=== PATIENT | male | born 1980 | race Hispanic/Latino ===

== ENCOUNTER 2021-11-14 23:05 | Emergency (ER) | payer OTHER ==
[~2021-11-14] VITALS: Ht 172.7 cm; Wt 86.2 kg
[2021-11-14 23:08] VITALS: BP 136/93
[2021-11-14 23:39] LABS: BASOPHILS % (AUTO) 0.4 % (0.0-5.0); EOSINOPHILS % (AUTO) 2.1 % (0.0-8.0); HEMATOCRIT 43.3 % (42-54); LYMPHOCYTES % (AUTO) 31.2 % (21.0-51.0); MEAN CORPUSCULAR HEMOGLOBIN 29.1 pg (27.0-33.0); MONOCYTES % (AUTO) 7.8 % (3.0-13.0); NEUTROPHILS % (AUTO) 58.2 % (40.0-77.0); PLATELET COUNT (AUTO) 367 K/uL (130-400); RED BLOOD CELL COUNT(AUTO) 4.92 MIL/uL (4.50-6.20); RED CELL DISTRIBUTION WIDTH 14.7 % (11.0-15.5)
[2021-11-14 23:59] LABS: ALBUMIN 3.8 g/dL (3.5-5.0); BILIRUBIN,TOTAL 0.5 mg/dL (0.2-1.0)
[2021-11-15 01:01] LABS: TOTAL PROTEIN, SERUM 7.7 g/dL (6.0-8.3)
== END 2021-11-15 03:36 | disposition left against medical advice (07) ==
LOC: EDH 23:05
DX: R10.9 Unspecified abdominal pain (principal); Z53.21 Procedure and treatment not carried out due to patient leaving prior to being seen by health care provider
CPT/HCPCS: 36415; 80053; 83690; 85025

== ENCOUNTER 2025-01-27 21:41 | Emergency (ER) | payer BC, OTHER ==
[~2025-01-27] VITALS: Ht 152.4 cm; Wt 83.9 kg
--- NOTE | 2025-01-27 21:50 | ERN ---
ED Note History of Present Illness Stated Complaint: LACERATION Chief Complaint: Laceration/Avulsion Time Seen by MD: 21:42 Time Seen by Midlevel: 21:45 Dictation: Mr. Lau is a 44-year-old male with no reported chronic health issues who presented to the emergency department this evening for evaluation of hand injury. Patient states he was fishing for [employer] and when he went to discharge a live fish he struck his left index finger with his machete. Allergies: Coded Allergies: No Known Allergies (Unverified Allergy, Unknown, 11/14/21) Past Medical History Past Medical History: No Pertinent History Surgical History: Other Surgical History Other: LEFT HAND RN Note Reviewed/Agreed w/PFSH: Yes Review of System Dictation REVIEW OF SYSTEMS: CONSTITUTIONAL: Patient denies fevers, chills, sweats and weight changes. EYES: Patient denies any visual symptoms. EARS, NOSE, AND THROAT: No difficulties with hearing. No symptoms of rhinitis or sore throat. CARDIOVASCULAR: Patient denies chest pains, palpitations, orthopnea and paroxysmal nocturnal dyspnea. RESPIRATORY: No dyspnea on exertion, no wheezing or cough. GI: No nausea, vomiting, diarrhea, constipation, abdominal pain, hematochezia or melena. : No urinary hesitancy or dribbling. No nocturia or urinary frequency. No abnormal urethral discharge. MUSCULOSKELETAL: Reports pain left index finger. Patient is right-hand dominant NEUROLOGIC: No chronic headaches, no seizures. Patient denies numbness, tingling or weakness. PSYCHIATRIC: Patient denies problems with mood disturbance. No problems with anxiety. ENDOCRINE: No excessive urination or excessive thirst. DERMATOLOGIC: Reports laceration left index finger Initial Vital Sign VS Vital Signs Date Time Temp Pulse Resp B/P (MAP) Pulse Ox O2 Delivery O2 Flow Rate FiO2 01/27/25 21:43 97.2 86 20 132/91 100 Room Air 01/27/25 22:23 0 21 Physical Exam Dictation Vital signs: Reviewed. Afebrile Constitutional: No acute distress. Non-toxic appearing. Head/Face: Normocephalic, atraumatic. Eyes: Periorbital areas with no swelling, redness, or edema. Lids and lashes are normal. Conjunctival injection is absent. Sclera anicteric. Pupils equal, round, reactive to light. ENT: Pinnas intact and no signs of trauma or erythema. Ear canals clear and no discharge. TMs no erythema. No nasal discharge or bleeding noted. Oropharynx with no exudate, redness, swelling, masses, exudates, or evidence of obstruction. Uvula midline. Mucous membranes moist. Neck: Trachea midline, no masses palpated, and no cervical lymphadenopathy. No swelling. Supple, full range of motion. Chest/Axilla: No tenderness, no crepitus, no paradoxical movement, no retractions. Cardiovascular: Regular rate, regular rhythm, no murmur, no gallops. Symmetric pulses. No peripheral edema. Respiratory: Respirations even and unlabored. Lung sounds clear; no wheezes, rales or rhonchi. Gastrointestinal: Inspection is normal. No distention is appreciated. Bowel sounds are normal. No mass or organomegaly . There is no tenderness. No rebound. No rigidity. No voluntary or involuntary guarding. No Reed's sign. Neurological: Normal speech, gross motor function intact, gross sensory function intact. No focal weakness/Paresthesia. Musculoskeletal/Extremities: All extremities have full range of motion, no pain or tenderness on palpation. Symmetric pulses. Range of motion is intact to all joints of the right index finger. He has good color, warmth, movement, and sensation. Integumentary: 3 cm laceration linear to left index finger. Bleeding minimal. No foreign body visualized Skin is normal color, warm and dry. Cap refill less than 2 seconds. ED Course ED Course Orders Procedure Category Date Status Time Tetanus,Diphtheria PHA 01/27/25 Complete Tox [Adult] (Diphther 22:00 Hand 3+Vws Lt RAD 01/27/25 Taken 21:50 Hydrocodone/Apap PHA 01/27/25 Complete 5/325 ([place] 5/325mg) 23:30 Laceration Tray Set CPOE 01/27/25 Transmitted Up (Er) 23:05 Hydrocodone/Apap PHA 01/27/25 Complete 10/325 Tab ([place] 10) 23:06 Current Medications Medications (Trade) Dose Ordered Sig/Sampson Route PRN Reason Start Time Stop Time Status Last Admin Dose Admin Acetaminophen/ Hydrocodone Bitart (NORco 10) 1 tab STK-MED ONCE .ROUTE 01/27/25 23:06 01/27/25 23:07 DC 01/27/25 23:09 Acetaminophen/ Hydrocodone Bitart (NORco 5/325MG) 1 tab ONCE ONCE PO 01/27/25 23:30 01/27/25 23:31 DC Tetanus/ Diphtheria Toxoids Adsorbed (DiphthERIA-teTANUS TOXOID [ADULT]/ DECAVAC) 0.5 ml ONCE ONCE IM 01/27/25 22:00 01/27/25 22:01 DC 01/27/25 22:30 Vital Signs Date Time Temp Pulse Resp B/P (MAP) Pulse Ox O2 Delivery O2 Flow Rate FiO2 01/27/25 22:23 97.2 86 20 132/91 100 Room Air* 0 21 01/27/25 21:43 97.2 86 20 132/91 100 Room Air Eventful ED course. X-ray of the left hand negative for fracture or foreign body. Wound was cleansed well including soaked with Betadine. And irrigation with NS. He received dose tetanus toxoid as well as [place] x1. Wound was repaired with interrupted sutures see below. Tolerated procedure well. capillary refill remains brisk. ROM intact to left index finger. Discussed follow up care with patient and all questions were answered. Medical Decision Making MDM MDM: Differential diagnosis: Laceration left middle finger, foreign body left middle finger, fracture left middle finger Rationale: Tests considered and ordered secondary to shared decision making include: X-ray Previous outside records reviewed: Old ER visits. Risk of complication and/or morbidity or mortality of patient management: None Medications-Per medication reconciliation Need for hospitalization: Patient does not meet criteria for hospitalization. Need for emergency major/minor surgery: No There are no social concerns with this patient. Prescription drug management: cephalexin, Flagyl, Ibuprofen Prescriptions will include symptomatic care Patient's prior external medical records from other ER visits were reviewed by me as indicated. Prior testing and results from previous visits were reviewed. Prior tests were taken into account with medical decision making and resource utilization, independent historian/historians were used to obtain complete medical history. I independently interpreted the test that were performed, results were reviewed by me and considered findings on radiology if ordered. Medical management and examination interpretation discussions were had by me with other qualified healthcare professionals as indicated for the patient's care. Procedure Wound Location: upper extremity (Left index finger) Wound Length (cm): 3 Wound's Depth, Shape: linear Wound Explored: no foreign body removed Irrigated w/ Saline (ccs): 150 Betadine Prep?: Yes Anesthesia: 1% Lidocaine Volume Anesthetic (ccs): 4 Wound Repaired With: sutures Suture Size/Type: 4:0 Number of Sutures: 4 Layer Closure?: No Sterile Dressing Applied?: Yes (Nonadherent dressing and [place]) DX & DISP Disposition: Discharge Departure Impression: Primary Impression: Finger laceration Condition: Stable Scripts Ibuprofen (Ibuprofen) 600 Mg Tablet 600 MG PO Q6H PRN for PAIN, #15 TAB 0 Refills Prov: HANDY LOPEZ NP 01/27/25 Metronidazole (Metronidazole) 500 Mg Tablet 1 TAB PO BID for 7 Days, #14 TAB 0 Refills Prov: HANDY LOPEZ NP 01/27/25 Cephalexin (Cephalexin) 500 Mg Tablet 1 TAB PO BID for 10 Days, #20 TAB 0 Refills Prov: HANDY LOPEZ NP 01/27/25 Additional Instructions: Keep wound clean and dry for the next 24-48 hours. After 48 hours you may gently clean with soap and water; pat dry. Avoid soaking in water; avoid swimming pools/hot tubs and/or dishwashing without gloves. May apply [id number] antibiotic ointment and cover with bandage. May take over-the- counter Tylenol or ibuprofen as needed for discomfort. Sutures should be removed in 10-14 days. Follow up with your primary care physician. Return to the emergency department for any worsening of symptoms or concerns. Referrals: SHAHID LINK MD (PCP) Time of Disposition: 23:46 HANDY LOPEZ NP Jan 27, 2025 21:50
[2025-01-27] MEDS: teTANUS/diphthERIA TOXOID [ADULT] 0.5 ML VIAL IM ONE (22:30)
[2025-01-27] MEDS: HYDROcodone/APAP 5/325 1 TAB TABLET PO ONE (23:09)
[2025-01-27] MEDS: HYDROcodone/acetaMINOPHEN 10/325 MG TAB ONE (23:09)
[2025-01-27] MEDS ORDERED: METR-172 PO (23:44)
[2025-01-27] MEDS ORDERED: CEPH500T PO (23:44)
[2025-01-27] MEDS ORDERED: IBUP-2070 PO (23:45)
[2025-01-28 00:04] VITALS: BP 128/68; PULSE 81; RESP 18; TEMP 97.9; O2SAT 98
--- NOTE | 2025-01-28 10:10 | HMCIMG ---
LEFT HAND RADIOGRAPHS - 3 VIEWS INDICATION: Possible foreign body to left index finger. COMPARISON: None FINDINGS: AP, lateral, and oblique views. No acute fracture of subluxation identified. Shortening of the fifth digit and fusion of its proximal and distal interphalangeal joints. Scaphoid bone is intact. Carpal alignment and ulnar variance is within normal limits. No radiopaque foreign body noted. IMPRESSION: No evidence for fracture or foreign body.
== END 2025-01-28 00:05 | disposition home or self-care (01) ==
LOC: EDH 21:48
DX: S61.211A Laceration without foreign body of left index finger without damage to nail, initial encounter (principal); Z98.890 Other specified postprocedural states; W56.52XA Struck by other fish, initial encounter; Y93.89 Activity, other specified; Y92.89 Other specified places as the place of occurrence of the external cause; Y99.8 Other external cause status
CPT/HCPCS: 12002; 73130; 90471; 90714; 99284